=== PATIENT | female | born 1945 | race African-American/Black ===

== ENCOUNTER 2017-10-01 00:50 | Emergency (ER) | payer MEDICARE, BC ==
[~2017-10-01] VITALS: Ht 165.1 cm; Wt 82.0 kg
[~2017-10-01 00:50] MED LIST: AMLO2.5T45 PO; BRIM.2 BOTHEYE; DOXY150T PO; FENT1PAT TD; HYDR12TA PO; INSNOV SUBCUT; KETO5DRO80 EACHEYE; LEVVL SQ; PSYL3.4P6 PO
[2017-10-01] MEDS ORDERED: KETOROLAC 60MG/2ML VIAL IM ONE (03:30)
[2017-10-01] MEDS ORDERED: MORPHINE SULFATE 10 MG/ML CPJ IM ONE (03:30)
[2017-10-01] MEDS ORDERED: LIDOCAINE 5% PATCH TOP SCH (03:30)
[2017-10-01 05:04] VITALS: BP 98/45
[2017-10-01 05:50] LABS: CLARITY URINE CLOUDY (CLEAR); COLOR URINE YELLOW (YELLOW); KETONES URINE TRACE (NEGATIVE); LEUKOCYTE ESTERASE URINE NEGATIVE (NEGATIVE); NITRITE URINE NEGATIVE (NEGATIVE); OCCULT BLOOD URINE TRACE (NEGATIVE); PROTEIN URINE NEGATIVE (NEGATIVE); SPECIFIC GRAVITY URINE 1.018 (1.005-1.030)
== END 2017-10-01 06:47 | disposition home or self-care (01) ==
LOC: ER 00:56
DX: G89.29 Other chronic pain (principal); M54.9 Dorsalgia, unspecified; R20.0 Anesthesia of skin; R20.2 Paresthesia of skin; M79.605 Pain in left leg; M79.604 Pain in right leg; I10 Essential (primary) hypertension; Z88.2 Allergy status to sulfonamides; Z88.8 Allergy status to other drugs, medicaments and biological substances; Z79.4 Long term (current) use of insulin
CPT/HCPCS: 81001; 96372; 99284; J1885; J2270

== ENCOUNTER 2022-12-02 16:42 | Inpatient (IN) | payer BC, MEDICARE ==
[~2022-12-02] VITALS: Ht 165.1 cm; Wt 100.2 kg
[~2022-12-02 16:42] MED LIST changes: -DOXY150T PO; +DOXY150T5 PO
[2022-12-02] MEDS ORDERED: LEVETIRACETAM 500MG PREMIX 100 ML IV ONE (17:00)
[2022-12-02] MEDS ORDERED: SODIUM CHLORIDE 0.9% 1,000 ML IV ONE (17:30)
[2022-12-02 17:43] LABS: BG BASE EXCESS 0.6 mmol/L (-2.0-2.0); BG DEOXYHEMOGLOBIN 9.3 % (0.0-5.0); BG FRACTION INSPIRED OXYGEN 40; BG HCO3 ACT 26.9 mmol/L (22.0-26.0); BG METHEMOGLOBIN 0.3 % (0.0-1.5); BG OXYGEN SATURATION 90.6 % (92.0-98.5); BG OXYHEMOGLOBIN 89.4 % (94.0-97.0); BG PCO2 51.4 mmHg (35.0-45.0); BG PH 7.336 (7.350-7.450); BG PO2 62.3 mmHg (75.0-100.0); BG SAMPLE SITE LEFT BRACHIAL; BG VENT MODE NASAL CANNULA
[2022-12-02] MEDS ORDERED: SODIUM CHLORIDE 0.9% 1000ML BAG (SEPSIS BOLUS) IV ONE (17:45)
[2022-12-02] MEDS ORDERED: CEFTRIAXONE 1 G PREMIX 50 ML IV ONE (17:45)
[2022-12-02] MEDS ORDERED: AZITHROMYCIN 500MG/250ML 250 ML IV ONE (17:45)
[2022-12-02 18:01] LABS: CHLORIDE 101 mEq/L (98-107)
[2022-12-02 18:04] LABS: BASOPHILS % 0.5 % (0.0-2.0); EOSINOPHILS % 0.3 % (0.0-5.0); HEMATOCRIT. 30.8 % (36.0-48.0); HEMOGLOBIN. 9.5 g/dL (12.0-16.0); LYMPHOCYTES % 11.7 % (20.0-50.0); MEAN CORPUSCULAR HEMOGLOBIN 27.1 pg (28.0-32.0); MEAN CORPUSCULAR VOLUME 88.2 fL (81.0-99.0); MEAN PLATELET VOLUME 9.8 fl (7.4-10.4); MONOCYTES % 7.3 % (2.0-8.0); NEUTROPHILS % 80.2 % (40.0-76.0); PLATELET 172 x1000/uL (130-400)
[2022-12-02 18:12] LABS: ETHANOL BLOOD < 10 mg/dL
[2022-12-02 18:52] LABS: D-DIMER 1.29 mg/L FEU (<0.50); PARTIAL THROMBOPLASTIN TIME 25.1 sec (23.4-31.0); PROTHROMBIN TIME 11.1 sec (9.6-11.0)
[2022-12-02] MEDS ORDERED: ACETAMINOPHEN 325MG TABLET PO ONE (19:00)
[2022-12-02] MEDS ORDERED: ASPIRIN 325MG EC TABLET PO ONE (19:00)
[2022-12-02] MEDS ORDERED: ALBUTEROL (0.083%) 2.5MG/3ML NEB HHN ONE (19:00)
[2022-12-02] MEDS ORDERED: SODIUM POLYSTYRENE SULFONATE 15 G/60 ML BOT PO ONE (19:00)
[2022-12-02] MEDS ORDERED: SODIUM BICARBONATE 8.4% 1 MEQ/ML 50ML SYR IV ONE (19:00)
[2022-12-02] MEDS ORDERED: ENOXAPARIN 100MG/ML SYR SUBCUT ONE (19:15)
[2022-12-02] MEDS ORDERED: SODIUM BICARBONATE 8.4% 1 MEQ/ML 50ML SYR IV NR (20:45)
[2022-12-02 20:50] LABS: BG BASE EXCESS 0.3 mmol/L (-2.0-2.0); BG CARBOXYHEMOGLOBIN 0.3 % (0.5-1.5); BG DEOXYHEMOGLOBIN 3.2 % (0.0-5.0); BG FRACTION INSPIRED OXYGEN 50; BG HCO3 ACT 25.7 mmol/L (22.0-26.0); BG METHEMOGLOBIN 0.3 % (0.0-1.5); BG OXYGEN SATURATION 96.8 % (92.0-98.5); BG OXYHEMOGLOBIN 96.2 % (94.0-97.0); BG PCO2 45.3 mmHg (35.0-45.0); BG PH 7.372 (7.350-7.450); BG PO2 102.9 mmHg (75.0-100.0); BG SAMPLE SITE RIGHT RADIAL; BG TOTAL HEMOGLOBIN 9.6 g/dL (12.0-18.0); BG VENT MODE MASK - BIPAP
[2022-12-02] MEDS ORDERED: ASPIRIN 325MG EC TABLET PO NR (21:00)
[2022-12-03] VITALS (7 sets, daily range): BP systolic 137–165; BP diastolic 61–93
[2022-12-03] MEDS ORDERED: DEXTROSE 50% WATER 50ML SYRINGE IV PRN (03:45)
[2022-12-03] MEDS ORDERED: IPRATROPIUM/ALBUTEROL 0.5-3(2.5)MG/3ML NEB HHN PRN (03:45)
[2022-12-03] MEDS ORDERED: LORAZEPAM 2MG/ML CPJ IV PRN (03:45)
[2022-12-03] MEDS ORDERED: CLONIDINE 0.1MG TABLET PO PRN (03:45)
[2022-12-03] MEDS ORDERED: ACETAMINOPHEN 325MG TABLET PO PRN ×2 (03:45)
[2022-12-03] MEDS: BLOOD SUGAR DIAGNOSTIC STRIP TEST SCH ×2 (07:01→21:00)
[2022-12-03] MEDS: INSULIN LISPRO 100 UNITS/ML SUBCUT SCH ×3 (07:32→21:23)
[2022-12-03] MEDS: HYDRALAZINE HCL 25MG TABLET PO SCH ×2 (09:17→21:20)
[2022-12-03] MEDS: LEVETIRACETAM 500MG TABLET PO SCH ×2 (09:18→21:19)
[2022-12-03] MEDS: ENOXAPARIN 40MG/0.4ML SYR SUBCUT SCH (09:22)
[2022-12-03 09:34] LABS: CREATINE KINASE MB FRACTION 1.7 ng/mL (0.5-3.6); PHOSPHORUS 3.3 mg/dL (2.5-4.9)
[2022-12-03] MEDS ORDERED: SODIUM POLYSTYRENE SULFONATE 15 G/60 ML BOT PO NR (11:39)
[2022-12-03 15:37] LABS: CREATINE KINASE MB FRACTION 2.1 ng/mL (0.5-3.6)
[2022-12-03] MEDS ORDERED: IPRATROPIUM/ALBUTEROL 0.5-3(2.5)MG/3ML NEB HHN SCH (17:00)
[2022-12-03 17:51] LABS: BG BASE EXCESS 1.3 mmol/L (-2.0-2.0); BG CARBOXYHEMOGLOBIN 1.7 % (0.5-1.5); BG FRACTION INSPIRED OXYGEN 44; BG HCO3 ACT 28.3 mmol/L (22.0-26.0); BG METHEMOGLOBIN 0.1 % (0.0-1.5); BG OXYGEN SATURATION 85.7 % (92.0-98.5); BG OXYHEMOGLOBIN 84.2 % (94.0-97.0); BG PCO2 57.1 mmHg (35.0-45.0); BG PH 7.313 (7.350-7.450); BG PO2 53.9 mmHg (75.0-100.0); BG SAMPLE SITE RIGHT RADIAL; BG TOTAL HEMOGLOBIN 10.7 g/dL (12.0-18.0); BG VENT MODE NASAL CANNULA
[2022-12-03] MEDS: IPRATROPIUM BROMIDE (0.02%) 0.5MG/2.5ML NEB HHN SCH (18:45)
[2022-12-03] MEDS: ALBUTEROL (0.083%) 2.5MG/3ML NEB HHN SCH (18:45)
[2022-12-03] MEDS ORDERED: FUROSEMIDE 40MG/4ML VIAL IVP NR (18:45)
[2022-12-03] MEDS: CEFTRIAXONE 1,000 MG in DEXTROSE 5% WATER 50 ML IV SCH (18:56)
[2022-12-03] MEDS: AZITHROMYCIN 500 MG in DEXT 5% WATER 250 ML IV SCH (21:19)
[2022-12-03] MEDS: TRAZODONE HCL 50MG TABLET PO SCH (21:19)
[2022-12-03] MEDS ORDERED: INSULIN GLARGINE 100 UNITS/ML SUBCUT SCH ×3 (22:00)
[2022-12-04] VITALS: BP 157/63
[2022-12-04 00:15] LABS: CREATINE KINASE MB FRACTION 2.3 ng/mL (0.5-3.6)
[2022-12-04] MEDS: ONDANSETRON HCL 4MG/2ML INJ IV PRN ×2 (00:51→21:56)
[2022-12-04] MEDS: IPRATROPIUM BROMIDE (0.02%) 0.5MG/2.5ML NEB HHN SCH ×5 (01:24→16:18)
[2022-12-04] MEDS: ALBUTEROL (0.083%) 2.5MG/3ML NEB HHN SCH ×5 (01:25→16:18)
[2022-12-04 05:00] VITALS: BP 142/70
[2022-12-04 07:22] LABS: BASOPHILS % 0.9 % (0.0-2.0); EOSINOPHILS % 3.2 % (0.0-5.0); HEMATOCRIT. 30.8 % (36.0-48.0); HEMOGLOBIN. 9.7 g/dL (12.0-16.0); LYMPHOCYTES % 15.6 % (20.0-50.0); MEAN CORPUSCULAR VOLUME 85.5 fL (81.0-99.0); MEAN PLATELET VOLUME 9.6 fl (7.4-10.4); MONOCYTES % 7.4 % (2.0-8.0); NEUTROPHILS % 72.9 % (40.0-76.0); PLATELET 188 x1000/uL (130-400); RED CELL DISTRIBUTION WIDTH 13.9 % (11.6-14.6)
[2022-12-04] MEDS: BLOOD SUGAR DIAGNOSTIC STRIP TEST SCH ×4 (07:30→21:46)
[2022-12-04 07:55] LABS: FOLIC ACID (FOLATE) SERUM 13.6 ng/mL (>5.38)
[2022-12-04] MEDS: INSULIN LISPRO 100 UNITS/ML SUBCUT SCH ×7 (08:00→21:49)
[2022-12-04 08:33] LABS: BG BASE EXCESS 5.2 mmol/L (-2.0-2.0); BG CARBOXYHEMOGLOBIN 0.4 % (0.5-1.5); BG DEOXYHEMOGLOBIN 3.4 % (0.0-5.0); BG FRACTION INSPIRED OXYGEN 50; BG HCO3 ACT 31.9 mmol/L (22.0-26.0); BG METHEMOGLOBIN 0.3 % (0.0-1.5); BG OXYGEN SATURATION 96.6 % (92.0-98.5); BG OXYHEMOGLOBIN 95.9 % (94.0-97.0); BG PCO2 58.7 mmHg (35.0-45.0); BG PH 7.353 (7.350-7.450); BG PO2 94.7 mmHg (75.0-100.0); BG SAMPLE SITE RIGHT RADIAL; BG TOTAL HEMOGLOBIN 10.1 g/dL (12.0-18.0); BG TOTAL RESPIRATORY RATE 30 b/min; BG VENT MODE MASK - BIPAP
[2022-12-04] MEDS: FUROSEMIDE 40MG/4ML VIAL IVP SCH ×2 (10:02→18:23)
[2022-12-04] MEDS: LEVETIRACETAM 500MG TABLET PO SCH ×2 (10:02→21:46)
[2022-12-04] MEDS: HYDRALAZINE HCL 25MG TABLET PO SCH ×2 (10:02→21:46)
[2022-12-04] MEDS: ENOXAPARIN 40MG/0.4ML SYR SUBCUT SCH (10:03)
[2022-12-04] MEDS: CEFTRIAXONE 1,000 MG in DEXTROSE 5% WATER 50 ML IV SCH (18:13)
[2022-12-04 20:00] VITALS: BP 147/63
[2022-12-04] MEDS: AZITHROMYCIN 500 MG in DEXT 5% WATER 250 ML IV SCH (21:44)
[2022-12-04] MEDS: TRAZODONE HCL 50MG TABLET PO SCH (21:45)
[2022-12-04 22:00] VITALS: BP 139/71
[2022-12-04] MEDS ORDERED: INSULIN GLARGINE 100 UNITS/ML SUBCUT SCH (22:00)
[2022-12-04 23:00] VITALS: BP_SYST 139; BP_SYST 19; BP_DIAS 53
[2022-12-05] VITALS (15 sets, daily range): BP systolic 104–167; BP diastolic 42–74
[2022-12-05] MEDS: ALBUTEROL (0.083%) 2.5MG/3ML NEB HHN SCH ×5 (00:56→21:11)
[2022-12-05] MEDS: IPRATROPIUM BROMIDE (0.02%) 0.5MG/2.5ML NEB HHN SCH ×5 (00:57→21:11)
[2022-12-05] MEDS: BLOOD SUGAR DIAGNOSTIC STRIP TEST SCH ×4 (07:30→21:00)
[2022-12-05] MEDS: INSULIN LISPRO 100 UNITS/ML SUBCUT SCH ×6 (08:29→18:17)
[2022-12-05] MEDS: LEVETIRACETAM 500MG TABLET PO SCH (09:04)
[2022-12-05] MEDS: HYDRALAZINE HCL 25MG TABLET PO SCH ×2 (09:05→23:52)
[2022-12-05] MEDS: ENOXAPARIN 30MG/0.3ML SYR SUBCUT SCH ×2 (09:05→23:52)
[2022-12-05] MEDS: FUROSEMIDE 40MG/4ML VIAL IVP SCH (09:05)
[2022-12-05 11:12] LABS: BASOPHILS % 0.5 % (0.0-2.0); HEMATOCRIT. 31.9 % (36.0-48.0); HEMOGLOBIN. 9.9 g/dL (12.0-16.0); LYMPHOCYTES % 15.7 % (20.0-50.0); MEAN CORPUSCULAR HEMOGLOBIN 26.7 pg (28.0-32.0); MEAN CORPUSCULAR VOLUME 85.8 fL (81.0-99.0); MEAN PLATELET VOLUME 9.5 fl (7.4-10.4); MONOCYTES % 7.5 % (2.0-8.0); NEUTROPHILS % 73.3 % (40.0-76.0); PLATELET 209 x1000/uL (130-400); RED BLOOD CELL COUNT 3.72 mill/uL (4.2-5.4); RED CELL DISTRIBUTION WIDTH 13.7 % (11.6-14.6)
[2022-12-05] MEDS ORDERED: HYDR2TAB7 PO (13:08)
[2022-12-05] MEDS ORDERED: TRAZ-251 PO (13:08)
[2022-12-05] MEDS ORDERED: HYDR-4134 PO (13:08)
[2022-12-05] MEDS ORDERED: ATOR40TA70 PO (13:08)
[2022-12-05] MEDS ORDERED: FENT1PAT3 TP (13:08)
[2022-12-05] MEDS ORDERED: ESCI20TA37 PO (13:08)
[2022-12-05] MEDS: LAMOTRIGINE 25MG TABLET PO SCH (15:30)
[2022-12-05] MEDS: SODIUM CHLORIDE 0.9% 1,000 ML IV SCH (16:36)
[2022-12-05] MEDS: CEFTRIAXONE 1,000 MG in DEXTROSE 5% WATER 50 ML IV SCH (18:18)
[2022-12-05] MEDS ORDERED: INSULIN GLARGINE 100 UNITS/ML SUBCUT SCH (22:00)
[2022-12-05] MEDS: TRAZODONE HCL 50MG TABLET PO SCH (23:50)
[2022-12-06] VITALS (8 sets, daily range): BP systolic 111–170; BP diastolic 53–96
[2022-12-06] MEDS: LEVETIRACETAM 500MG TABLET PO SCH ×3 (00:01→08:48)
[2022-12-06] MEDS: AZITHROMYCIN 500 MG in DEXT 5% WATER 250 ML IV SCH (00:05)
[2022-12-06] MEDS: INSULIN LISPRO 100 UNITS/ML SUBCUT SCH ×5 (00:13→12:17)
[2022-12-06] MEDS: SODIUM CHLORIDE 0.9% 1,000 ML IV SCH (02:41)
[2022-12-06 06:25] LABS: BASOPHILS % 0.9 % (0.0-2.0); EOSINOPHILS % 2.5 % (0.0-5.0); HEMOGLOBIN. 9.7 g/dL (12.0-16.0); LYMPHOCYTES % 18.8 % (20.0-50.0); MEAN CORPUSCULAR HEMOGLOBIN 27.7 pg (28.0-32.0); MEAN CORPUSCULAR VOLUME 85.3 fL (81.0-99.0); MEAN PLATELET VOLUME 9.4 fl (7.4-10.4); MONOCYTES % 9.9 % (2.0-8.0); NEUTROPHILS % 67.9 % (40.0-76.0); PLATELET 192 x1000/uL (130-400); RED BLOOD CELL COUNT 3.52 mill/uL (4.2-5.4); RED CELL DISTRIBUTION WIDTH 13.8 % (11.6-14.6)
[2022-12-06] MEDS: ALBUTEROL (0.083%) 2.5MG/3ML NEB HHN SCH ×2 (08:08→13:26)
[2022-12-06] MEDS: IPRATROPIUM BROMIDE (0.02%) 0.5MG/2.5ML NEB HHN SCH ×2 (08:08→13:25)
[2022-12-06] MEDS: BLOOD SUGAR DIAGNOSTIC STRIP TEST SCH ×2 (08:21→11:43)
[2022-12-06] MEDS: HYDRALAZINE HCL 25MG TABLET PO SCH (08:39)
[2022-12-06] MEDS: LAMOTRIGINE 25MG TABLET PO SCH (08:39)
[2022-12-06] MEDS: ENOXAPARIN 30MG/0.3ML SYR SUBCUT SCH (08:40)
[2022-12-06] MEDS ORDERED: FUROSEMIDE 40MG/4ML VIAL IVP SCH (09:00)
[2022-12-06] MEDS ORDERED: LAM25 PO (12:29)
[2022-12-06] MEDS ORDERED: KEPP500 PO (12:29)
[2022-12-06] MEDS ORDERED: FERR-63 PO (12:29)
[2022-12-07] MEDS ORDERED: ASPIRIN 81MG TABLET PO SCH (09:00)
[2022-12-07] MEDS ORDERED: FERROUS SULFATE 325MG TABLET PO SCH (09:00)
== END 2022-12-06 18:35 | disposition home health service (06) | DRG 917 ==
LOC: ER 16:50 → MICUSO 20:50 → SUPCPDRO 20:58 → 5EST 12-03 11:37
PROVIDERS: ADMIT Internal Medicine; ATTEND Internal Medicine
PROC: 5A09357 Assistance with Respiratory Ventilation, Less than 24 Consecutive Hours, Continuous Positive Airway Pressure (ICD-10-PCS; principal; 2022-12-02)
PROC: 5A09357 Assistance with Respiratory Ventilation, Less than 24 Consecutive Hours, Continuous Positive Airway Pressure (ICD-10-PCS; 2022-12-03)
PROC: 05HM33Z Insertion of Infusion Device into Right Internal Jugular Vein, Percutaneous Approach (ICD-10-PCS; 2022-12-04)
PROC: B543ZZA Ultrasonography of Right Jugular Veins, Guidance (ICD-10-PCS; 2022-12-04)
PROC: 4A00X4Z Measurement of Central Nervous Electrical Activity, External Approach (ICD-10-PCS; 2022-12-05)
DX: T40.2X1A Poisoning by other opioids, accidental (unintentional), initial encounter (principal); G92.8 Other toxic encephalopathy; I21.A1 Myocardial infarction type 2; J96.01 Acute respiratory failure with hypoxia; J96.02 Acute respiratory failure with hypercapnia; J81.0 Acute pulmonary edema; E44.1 Mild protein-calorie malnutrition; E87.1 Hypo-osmolality and hyponatremia; N17.9 Acute kidney failure, unspecified; J81.1 Chronic pulmonary edema; E87.29 Other acidosis; E11.65 Type 2 diabetes mellitus with hyperglycemia; E87.5 Hyperkalemia; E78.00 Pure hypercholesterolemia, unspecified; I25.10 Atherosclerotic heart disease of native coronary artery without angina pectoris; Z20.822 Contact with and (suspected) exposure to COVID-19; G89.4 Chronic pain syndrome; G40.909 Epilepsy, unspecified, not intractable, without status epilepticus; I10 Essential (primary) hypertension; G47.33 Obstructive sleep apnea (adult) (pediatric); D63.8 Anemia in other chronic diseases classified elsewhere; Z68.36 Body mass index [BMI] 36.0-36.9, adult; Z95.5 Presence of coronary angioplasty implant and graft; Z88.2 Allergy status to sulfonamides; I25.2 Old myocardial infarction; Z79.899 Other long term (current) drug therapy; Z87.01 Personal history of pneumonia (recurrent); Y92.89 Other specified places as the place of occurrence of the external cause
CPT/HCPCS: 36415; 36573; 36600; 71045; 76700; 78580; 80048; 80053; 80320; 82375; 82550; 82553; 82607; 82728; 82746; 82805; 82962; 83036; 83540; 83550; 83605; 83735; 83880; 83930; 84100; 84145; 84484; 85025; 85379; 86850; 86900; 87426; 93005; 93306; 93970; 94640; 94660; 95816; 97162; 97166; 99291; C1725; C9803; J0456; J0696; J1650; J1815; J1940; J1953; J2060; J2405; J3490; J7030; J7060; G0480